=== PATIENT | male | born 1980 | race Caucasian/White ===

== ENCOUNTER 2020-03-08 12:25 | Emergency (ER) | payer SELFPAY ==
[2020-03-08] MEDS ORDERED: Ketorolac 30 MG/ML SDV IM ONE (12:48)
[2020-03-08] MEDS ORDERED: Aspirin 81 MG Tab.Chew PO ONE (12:54)
[2020-03-08 13:27] LABS: CHLORIDE,CL 102 mmol/L (98-107); SODIUM,NA 138 mmol/L (136-145)
[2020-03-08 13:32] LABS: ANION GAP 13.7 mmol/L (10-20)
--- NOTE | 2020-03-08 14:09 | EDM.PDOC ---
ED HPI GENERAL MEDICAL PROBLEM - General Chief Complaint: Chest Pain Stated Complaint: CHEST PAIN Time Seen by Provider: 03/08/20 12:40 Source of Information: Reports: Patient History Limitations: Reports: No Limitations - History of Present Illness INITIAL COMMENTS - FREE TEXT/NARRATIVE: Pt. presents to ER with complaints of sharp, respirophasic L sided chest pain. He states that it is worse with deep breathing and lifting, which he has been doing a lot of. He states that he has been experiencing intermittent pain similar to this in the past, but it is usually in the R side. Denies any cough. No fever or chills. Pt. states that he is a smoker. He states that he has been under a lot of stress recently due to a divorce and other legal proceedings regarding custody of this children. Pt. denies any diaphoresis. No jaw, neck or back pain. He states that he intermittently wakes up with pain in his arms, and states that this resolves when he repositions in bed. He states that he also has intermittent numbness in his legs at different times as well, and has been for a year. He denies any low back pain. He states that he has not had any nerve conduction studies or workup for this. Pt. denies any trauma. No nausea, vomiting, or diarrhea. Onset: Today Location: Reports: Chest, Lower Extremity, Left, Lower Extremity, Right Left Upper Chest Pain Score (Numeric/FACES): 2 - Related Data Allergies Allergy/AdvReac Type Severity Reaction Status Date / Time No Known Allergies Allergy Verified 03/08/20 12:46 Home Meds: Home Meds . [No Known Home Meds] 03/08/20 [History] Past Medical History Cardiovascular History: Reports: Heart Murmur Psychiatric History: Reports: Anxiety Social & Family History - Tobacco Use Smoking Status *Q: Current Every Day Smoker Years of Tobacco use: 13 Packs/Tins Daily: 1 - Recreational Drug Use Recreational Drug Use: Yes Recreational Drug Type: Reports: Marijuana/Hashish ED ROS GENERAL - Review of Systems Review Of Systems: See Below Constitutional: Reports: No Symptoms HEENT: Reports: No Symptoms Respiratory: Reports: Pleuritic Chest Pain. Denies: Shortness of Breath, Wheezing, Cough Cardiovascular: Reports: No Symptoms Endocrine: Reports: No Symptoms GI/Abdominal: Reports: No Symptoms : Reports: No Symptoms Musculoskeletal: Reports: Arm Pain, Leg Pain Skin: Reports: No Symptoms Neurological: Reports: No Symptoms Psychiatric: Reports: Anxiety Hematologic/Lymphatic: Reports: No Symptoms Immunologic: Reports: No Symptoms ED EXAM, GENERAL - Physical Exam Exam: See Below Exam Limited By: No Limitations General Appearance: Alert, WD/WN, No Apparent Distress Throat/Mouth: Normal Inspection, Normal Lips, Normal Gums, No Airway Compromise Head: Atraumatic, Normocephalic Neck: Normal Inspection, Supple, Non-Tender, Full Range of Motion Respiratory/Chest: No Respiratory Distress, Lungs Clear, Normal Breath Sounds, No Accessory Muscle Use, Chest Non-Tender Cardiovascular: Normal Peripheral Pulses, Regular Rate, Rhythm, No Edema, No Gallop, No JVD, No Murmur, No Rub Peripheral Pulses: 4+: Radial (L) GI/Abdominal: Soft, Non-Tender, No Distention, No Mass (Male) Exam: Deferred Rectal (Males) Exam: Deferred Extremities: Normal Inspection, Normal Range of Motion, Non-Tender, No Pedal Edema, Normal Capillary Refill Neurological: Alert, Oriented, CN II-XII Intact, Normal Cognition, Normal Gait, Normal Reflexes Psychiatric: Normal Affect, Normal Mood EKG INTERPRETATION Rhythm: NSR [place]: Normal P-Wave: Present QRS: Normal ST-T: Normal QT: Normal Course - Vital Signs Last Recorded V/S: Last Vital Signs Temp 36.6 C 03/08/20 12:30 Pulse 55 L 03/08/20 12:30 Resp 14 03/08/20 12:30 BP 109/72 03/08/20 12:30 Pulse Ox 98 03/08/20 12:30 - Orders/Labs/Meds Labs: Laboratory Tests 03/08/20 03/08/20 03/08/20 Range/Units 12:56 12:56 12:56 WBC 10.4 H (4.0-10.0) x10^3/uL RBC 5.01 (4.5-6.0) x10^6/uL Hgb 15.4 (14.0-18.0) g/dL Hct 43.9 (40.0-52.0) % MCV 87.6 (78.0-93.0) fL MCH 30.7 (26.0-32.0) pg MCHC 35.1 (32.0-36.0) g/dL RDW Coeff of Abigail 12.8 (10.0-15.0) % Plt Count 185 (130-400) x10^3/uL Neut % (Auto) 64.6 (50.0-80.0) % Lymph % (Auto) 25.6 (25.0-50.0) % [place] % (Auto) 7.1 (2.0-11.0) % Eos % (Auto) 2.4 (0.0-4.0) % Baso % (Auto) 0.3 (0.2-1.2) % PT 10.5 (9.5-12.3) SEC INR 1.0 L (2.0-3.5) D-Dimer, Quantitative (<=0.58) mg/LFEU Sodium 138 (136-145) mmol/L Potassium 3.7 (3.5-5.1) mmol/L Chloride 102 (98-107) mmol/L Carbon Dioxide 26 (21-32) mmol/L Anion Gap 13.7 (10-20) mmol/L BUN 16 (7-18) mg/dL Creatinine 1.1 (0.70-1.30) mg/dL Est Cr Clr Drug Dosing TNP Estimated GFR (MDRD) > 60 Glucose 96 (74-106) mg/dL Calcium 8.6 (8.5-10.1) mg/dL Corrected Calcium 8.76 (8.5-10.1) mg/dL Total Bilirubin 0.7 (0.2-1.0) mg/dL AST 17 (15-37) U/L ALT 40 (16-63) U/L Alkaline Phosphatase 65 (46-116) U/L Troponin I < 0.017 (<=0.056) ng/mL C-Reactive Protein 0.4 (<=0.9) mg/dL Total Protein 6.5 (6.4-8.2) g/dL Albumin 3.8 (3.4-5.0) g/dL Globulin 2.7 Albumin/Globulin Ratio 1.41 03/08/20 Range/Units 12:56 WBC (4.0-10.0) x10^3/uL RBC (4.5-6.0) x10^6/uL Hgb (14.0-18.0) g/dL Hct (40.0-52.0) % MCV (78.0-93.0) fL MCH (26.0-32.0) pg MCHC (32.0-36.0) g/dL RDW Coeff of Abigail (10.0-15.0) % Plt Count (130-400) x10^3/uL Neut % (Auto) (50.0-80.0) % Lymph % (Auto) (25.0-50.0) % [place] % (Auto) (2.0-11.0) % Eos % (Auto) (0.0-4.0) % Baso % (Auto) (0.2-1.2) % PT (9.5-12.3) SEC INR (2.0-3.5) D-Dimer, Quantitative 0.22 (<=0.58) mg/LFEU Sodium (136-145) mmol/L Potassium (3.5-5.1) mmol/L Chloride (98-107) mmol/L Carbon Dioxide (21-32) mmol/L Anion Gap (10-20) mmol/L BUN (7-18) mg/dL Creatinine (0.70-1.30) mg/dL Est Cr Clr Drug Dosing Estimated GFR (MDRD) Glucose (74-106) mg/dL Calcium (8.5-10.1) mg/dL Corrected Calcium (8.5-10.1) mg/dL Total Bilirubin (0.2-1.0) mg/dL AST (15-37) U/L ALT (16-63) U/L Alkaline Phosphatase (46-116) U/L Troponin I (<=0.056) ng/mL C-Reactive Protein (<=0.9) mg/dL Total Protein (6.4-8.2) g/dL Albumin (3.4-5.0) g/dL Globulin Albumin/Globulin Ratio Meds: Medications Discontinued Medications Generic Name Dose Route Start Last Admin Trade Name Freq PRN Reason Stop Dose Admin Aspirin 324 mg 03/08/20 12:54 03/08/20 12:30 Aspirin PO 03/08/20 12:55 324 mg ONETIME ONE Administration Ketorolac Tromethamine 30 mg 03/08/20 12:48 03/08/20 12:54 Toradol IM 03/08/20 12:49 30 mg ONETIME ONE Administration - Radiology Interpretation Free Text/Narrative:: chest xray negative for acute pathology. Departure - Departure Time of Disposition: 14:00 Disposition: Home, Self-Care 01 Clinical Impression: Atypical chest pain - Discharge Information Instructions: Nonspecific Chest Pain, Adult, [id number], Ketorolac tablets, Prednisone tablets Referrals: PCP,None [Primary Care Provider] - Forms: ED Department Discharge Additional Instructions: Home to rest. Prednisone 40mg once daily for 7 days Toradol 10mg 1 tab every 6 hours as needed for pain regarding the problems with your arms, follow-up with your PCP if you are still having discomfort/numbness for a EMG study. Off work today as needed. Sepsis Event Note (ED) - Evaluation Sepsis Screening Result: No Definite Risk - Focused Exam Vital Signs: Vital Signs Temp Pulse Resp BP Pulse Ox 03/08/20 12:30 36.6 C 55 L 14 109/72 98 - Problem List Review Problem List Initiated/Reviewed/Updated: Yes - Assessment/Plan Plan: Home to rest. Prednisone 40mg once daily for 7 days Toradol 10mg 1 tab every 6 hours as needed for pain regarding the problems with your arms, follow-up with your PCP if you are still having discomfort/numbness for a EMG study. Off work today as needed.
--- NOTE | 2020-03-08 14:19 | CR ---
[id number] RAD/RAD Chest PA And Lateral EXAM: RAD Chest PA And Lateral CLINICAL DATA: CHEST PAIN COMPARISON: NO PREVIOUS SIMILAR EXAM IS AVAILABLE. FINDINGS: The lungs are clear. The cardiomediastinal contour is normal. The regional bones and soft tissues are unremarkable. IMPRESSION: NO ACUTE PROCESS. Alli Chappell MD 03/08/20 [id number] Thank you for allowing us to participate in the care of your patient.
== END 2020-03-08 14:38 | disposition home or self-care (01) ==
LOC: VM.ED 12:25
DX: R07.89 Other chest pain (principal); F17.210 Nicotine dependence, cigarettes, uncomplicated
CPT/HCPCS: 36415; 71046; 80053; 84484; 85025; 85379; 85610; 86140; 93005; 96372; 99285; A9270; J1885; 93010; 99284